=== PATIENT | male | born 1980 | race Two or more races ===

== ENCOUNTER 2021-05-25 09:59 | Emergency (ER) | payer OTHER ==
[~2021-05-25] VITALS: Ht 190.5 cm; Wt 117.9 kg
[2021-05-25] MEDS ORDERED: VENLAFAXINE HCL25 MG PO (10:16)
== END 2021-05-25 15:02 | disposition home or self-care (01) ==
LOC: ER 09:59
DX: G89.11 Acute pain due to trauma (principal); M25.531 Pain in right wrist; M79.631 Pain in right forearm; S63.591S Other specified sprain of right wrist, sequela; X50.0XXS Overexertion from strenuous movement or load, sequela